=== PATIENT | male | born 1930 | race Two or more races ===

== ENCOUNTER 2017-06-04 07:56 | Outpatient (CLI) | payer OTHER ==
[~2017-06-04] VITALS: Ht 152.4 cm; Wt 72.6 kg
[~2017-06-04 07:56] MED LIST: AMLODIPINE; CIPRO500 MG PO; FINASTERIDE5 MG; FOLIC ACID0.4 MG; NORVASC5 MG; SYNTHROID125 MCG; TAMS0.4C; ZOCOR20 MG
== END 2017-06-04 08:10 | disposition home or self-care (01) ==
LOC: OFIC 805 07:56
DX: H90.3 Sensorineural hearing loss, bilateral (principal); H81.12 Benign paroxysmal vertigo, left ear